=== PATIENT | male | born 1990 | race Caucasian/White ===

== ENCOUNTER 2018-01-25 08:02 | Emergency (ER) | payer OTHER ==
--- NOTE | 2018-01-25 08:21 | ED Physician Documentation ---
General Adult - HISTORIAN Historian: patient - HPI Chief Complaint: Sore Throat Additional Information: 2 day history of sore throat, has had some chills, no fever noted. Having some difficutlies with swallowing. No rash noted. Has a slight productive cough of clear phlegm. Has had some mild nasal drainage of clear to white. Also complains of a knot in rectum. Present for 4 days. No hemorrhoids noted. No bleed note, tender. Has some constipation. Onset: days ago (2 days) Timing: still present Further Comments: yes ( states that patient snores a lot, has some apnic episodes at times.) - ROS CONST: chills. denies: fever - PAST HX Past History: other (was told with employment PE that he had blood in urine and protein. Has not had it checked out) Other History: none, other Surgeries/Procedures: none Allergies/Adverse Reactions: Allergies Allergy/AdvReac Type Severity Reaction Status Date / Time No Known Allergies Allergy Verified 01/25/18 08:17 Home Medications: Ambulatory Orders Medication Instructions Recorded NK [NK] 07/17/14 - SOCIAL HX Smoking History: non-smoker Alcohol Use: occasionally Drug Use: none - FAMILY HX Family History: No - VITAL SIGNS Vital Signs: Vital Signs Temp Pulse Resp BP Pulse Ox 120/68 01/03/16 23:06 - REVIEWED ASSESSMENTS Nursing Assessment Reviewed: Yes Vitals Reviewed: Yes Progress - Progress Progress: Patient was advised UA was clear. Advised most likely etiology for rectal discomfort is a hemorrhoid but without digital exam I could not tell for sure. He refused it. Patient advised that he might be having some sleep apnea related to enlarged tonsil and should consider seeing ENT for evaluation. General Adult Physical Exam - PHYSICAL EXAM GENERAL APPEARANCE: mild distress EENT: ENT inspection normal, no signs of dehydration, pharyngeal erythema, other (tonsil enlarged, erythematous with some mild exudate) NECK: normal inspection, thyroid normal, supple, lymphadenopathy (mild) RESPIRATORY: no resp distress, chest non-tender, breath sounds normal. No: wheezes, rales CVS: reg rate & rhythm, heart sounds normal, equal pulses, no murmur ABDOMEN: soft, no organomegaly, normal bowel sounds, no abdominal bruit, no distension, non-tender RECTAL: normal exam, other (patient refuse digital exam, no tenderness, swelling or erythema noted around the anal area. No hemorrhoid noted) NEURO: mood/affect nml, cognition normal Discharge Clincal Impression: Acute viral pharyngitis Referrals: Primary Doctor,No [Primary Care Provider] - 2 Days Additional Instructions: Drink a lot of fluids, gargle with salt water, use throat lozenges as needed. Use Prep H for rectal issue. If you continue to have problems to see a primary care provider or return to the ED. Condition: Stable Disposition: 01 HOME, SELF-CARE Decision to Admit: NO Date of Decison to Admit: 01/25/18 Decision Time: 08:54
[2018-01-25 09:04] VITALS: BP 148/68
[2018-01-25 13:13] LABS: APPEARANCE,URINE CLEAR (CLEAR); COLOR,URINE YELLOW (YELLOW); OCCULT BLOOD,URINE NEGATIVE (NEGATIVE); PH URINE 5.5 (5.0 - 8.0); UROBILINOGEN URINE 0.2 Eu (0.2-1.0)
== END 2018-01-25 09:02 | disposition home or self-care (01) ==
LOC: ED 08:02
DX: J02.9 Acute pharyngitis, unspecified (principal)
CPT/HCPCS: 81002; 87070; 87880; 99282